=== PATIENT | male | born 1975 | race American Indian/Alaskan Native ===

== ENCOUNTER 2021-12-07 19:46 | Emergency (ER) | payer SELFPAY ==
[2021-12-07 20:48] VITALS: BP 205/126
== END 2021-12-08 03:20 | disposition left against medical advice (07) ==
LOC: ED 19:46
DX: K08.89 Other specified disorders of teeth and supporting structures (principal); Z53.21 Procedure and treatment not carried out due to patient leaving prior to being seen by health care provider

== ENCOUNTER 2021-12-08 06:00 | Emergency (ER) | payer SELFPAY | END 2021-12-08 07:51 | disposition left against medical advice (07) | LOC: ED 06:00 | DX: K08.89 Other specified disorders of teeth and supporting structures (principal); Z53.21 Procedure and treatment not carried out due to patient leaving prior to being seen by health care provider ==